=== PATIENT | female | born 1970 | race Caucasian/White ===

== ENCOUNTER 2017-04-21 06:36 | Day surgery (SDC) | payer BC ==
[2017-04-20 13:19] LABS: CHLORIDE,CL 102 mmol/L (98-107); SODIUM,NA 139 mmol/L (136-145)
[~2017-04-21 06:36] MED LIST: Sodium Chloride 0.9% 10 ML Syringe FLUSH PRN; Sodium Chloride 0.9% 2.5 ML Syringe FLUSH PRN; ceFAZolin 1 GM in Premix Bag 1 BAG IV ONE
[2017-04-21] MEDS ORDERED: Fluorescein 5 ML Vial ONE (07:16)
[2017-04-21] MEDS ORDERED: Methylene Blue 50 MG/10 ML Ampule ONE (07:17)
[2017-04-21] MEDS ORDERED: Bupivacaine 0.25% 10 ML SDV ONE ×2 (07:17→08:27)
[2017-04-21] MEDS: Lactated Ringers 1,000 ML IV SCH ×2 (07:19→13:36)
--- NOTE | 2017-04-21 07:19 | PCM.PREANE ---
Preanesthetic Assessment - Anesthesia/Transfusion/Family Hx Anesthesia History: Prior Anesthesia Without Reaction Family History of Anesthesia Reaction: No Transfusion History: No Prior Transfusion(s) - Review of Systems General: No Symptoms Pulmonary: No Symptoms Cardiovascular: No Symptoms Gastrointestinal: No Symptoms Neurological: No Symptoms Other: Reports: Anxiety - Physical Assessment NPO Status Date: 04/20/17 Height: 1.56 m Weight: 68.039 kg ASA Class: 2 Mental Status: Alert & Oriented x3 Airway Class: Mallampati = 1 Dentition: Reports: Normal Dentition ROM/Head Extension: Full Lungs: Clear to Auscultation, Normal Respiratory Effort Cardiovascular: Regular Rate, Regular Rhythm - Lab Values: Laboratory Last Values WBC 5.43 K/uL (4.0-11.0) 04/20/17 11:34 RBC 4.48 M/uL (4.30-5.90) 04/20/17 11:34 Hgb 12.9 g/dL (12.0-16.0) 04/20/17 11:34 Hct 38.0 % (36.0-46.0) 04/20/17 11:34 MCV 84.8 fL (80.0-98.0) 04/20/17 11:34 MCH 28.8 pg (27.0-32.0) 04/20/17 11:34 MCHC 33.9 g/dL (31.0-37.0) 04/20/17 11:34 RDW Std Deviation 41.6 fl (28.0-62.0) 04/20/17 11:34 RDW Coeff of Pablo 14 % (11.0-15.0) 04/20/17 11:34 Plt Count 211 K/uL (150-400) 04/20/17 11:34 MPV 8.90 fL (7.40-12.00) 04/20/17 11:34 Nucleated RBC % 0.0 /100WBC 04/20/17 11:34 Nucleated RBCs # 0 K/uL 04/20/17 11:34 Sodium 139 mmol/L (136-145) 04/20/17 11:34 Potassium 4.2 mmol/L (3.5-5.1) 04/20/17 11:34 Chloride 102 mmol/L (98-107) 04/20/17 11:34 Carbon Dioxide 27.0 mmol/L (21.0-32.0) 04/20/17 11:34 BUN 11 mg/dL (7.0-18.0) 04/20/17 11:34 Creatinine 0.8 mg/dL (0.6-1.0) 04/20/17 11:34 Est Cr Clr Drug Dosing 69.35 mL/min 04/20/17 11:34 Estimated GFR (MDRD) > 60.0 ml/min 04/20/17 11:34 Glucose 92 mg/dL (74-106) 04/20/17 11:34 Calcium 8.6 mg/dL (8.5-10.1) 04/20/17 11:34 HCG, Quant < 1.0 mIU/mL 04/20/17 11:34 Blood Type O NEGATIVE 04/20/17 11:34 Antibody Screen NEGATIVE 04/20/17 11:34 - Allergies Allergies/Adverse Reactions: Allergies Allergy/AdvReac Type Severity Reaction Status Date / Time No Known Allergies Allergy Verified 04/16/17 09:44 - Anesthesia Plan Pre-Op Medication Ordered: None - Acknowledgements Anesthesia Type Planned: General Anesthesia Pt an Appropriate Candidate for the Planned Anesthesia: Yes Alternatives and Risks of Anesthesia Discussed w Pt/Guardian: Yes Pt/Guardian Understands and Agrees with Anesthesia Plan: Yes PreAnesthesia Questionnaire HEENT History: Reports: Other (See Below) Other HEENT History: wears contacts Cardiovascular History: Reports: None Respiratory History: Reports: None Gastrointestinal History: Reports: None Genitourinary History: Reports: Renal [address] RO[address] CONTRACTOR History: Reports: , Spontaneous Musculoskeletal History: Reports: None Neurological History: Reports: None Psychiatric History: Reports: Anxiety, Depression Endocrine/Metabolic History: Reports: None Hematologic History: Reports: None Immunologic History: Reports: None Oncologic (Cancer) History: Reports: None Dermatologic History: Reports: Other (See Below) Other Dermatologic History: rash to face - Infectious Disease History Infectious Disease History: Reports: Chicken Pox - Past Surgical History Head Surgeries/Procedures: Reports: None HEENT Surgical History: Reports: None Cardiovascular Surgical History: Reports: None Respiratory Surgical History: Reports: None GI Surgical History: Reports: None Female Surgical History: Reports: Section, Cervical Cryotherapy Endocrine Surgical History: Reports: None Neurological Surgical History: Reports: None Musculoskeletal Surgical History: Reports: None Oncologic Surgical History: Reports: None Dermatological Surgical History: Reports: None - SUBSTANCE USE Smoking Status *Q: Never Smoker Recreational Drug Use History: No - HOME MEDS Home Medications: Home Meds ALPRAZolam [Alprazolam] 1 tab PO DAILY PRN 01/20/16 [History] buPROPion [Wellbutrin XL] 150 mg PO DAILY 01/20/16 [History] Desvenlafaxine [Desvenlafaxine ER] 100 mg PO DAILY 04/16/17 [History] Ibuprofen 2 tab PO ASDIRECTED PRN 04/16/17 [History] Zolpidem [Ambien] 5 mg PO BEDTIME PRN 04/16/17 [History] metroNIDAZOLE [Metrogel 1%] 1 applic TOP ASDIRECTED 04/16/17 [History] - CURRENT (IN HOUSE) MEDS Current Meds: Current Medications Lactated Ringer's (Ringers, Lactated) 1,000 mls @ 125 mls/hr IV ASDIRECTED DANILO Sodium Chloride (Saline Flush) 10 ml FLUSH ASDIRECTED PRN PRN Reason: Keep Vein Open Sodium Chloride (Saline Flush) 2.5 ml FLUSH ASDIRECTED PRN PRN Reason: Keep Vein Open Discontinued Medications Cefazolin Sodium/Dextrose 1 gm (/ Premix) 50 mls @ 100 mls/hr IV ONETIME ONE Stop: 04/21/17 05:29
[2017-04-21] MEDS ORDERED: Midazolam 1 MG/ML 2 ML SDV ONE (07:20)
[2017-04-21] MEDS ORDERED: Propofol 200 MG/20 ML SDV ONE (07:20)
[2017-04-21] MEDS ORDERED: Ondansetron 4 MG/2 ML SDV ONE (07:20)
[2017-04-21] MEDS ORDERED: fentaNYL 100 MCG/2 ML SDV ONE (07:20)
[2017-04-21] MEDS ORDERED: Ketorolac 30 MG/ML SDV ONE (07:28)
[2017-04-21] MEDS ORDERED: Glycopyrrolate 0.2 MG/ML SDV ONE (07:28)
[2017-04-21] MEDS ORDERED: Rocuronium 10 MG/ML 10 ML Syringe ONE (07:28)
[2017-04-21] MEDS ORDERED: Dexamethasone 4 MG/ML 5 ML MDV ONE (07:28)
[2017-04-21] MEDS ORDERED: Sugammadex Sodium 200 MG/2 ML VIAL ONE (07:32)
[2017-04-21] MEDS ORDERED: ceFAZolin 1 GM Vial ONE (08:00)
[2017-04-21] MEDS ORDERED: Morphine 10 MG/ML Syringe ONE (08:12)
[2017-04-21] MEDS ORDERED: Desflurane 240 ML Bottle ONE (09:24)
[2017-04-21] MEDS ORDERED: Furosemide 40 MG/4 ML VIAL ONE ×2 (10:00→10:08)
[2017-04-21] MEDS ORDERED: Arista AH Absorbable Hemostat ONE (10:20)
[2017-04-21] MEDS ORDERED: Promethazine 25 MG/ML SDV IM PRN (10:42)
[2017-04-21] MEDS ORDERED: Simethicone 80 MG Tab.Chew PO PRN (10:42)
[2017-04-21] MEDS ORDERED: Morphine 4 MG/ML Syringe IVPUSH PRN (10:42)
[2017-04-21] MEDS ORDERED: Ondansetron 4 MG/2 ML SDV IVPUSH PRN (10:42)
[2017-04-21] MEDS ORDERED: Ketorolac 30 MG/ML SDV IVPUSH PRN (10:42)
[2017-04-21] MEDS ORDERED: Ketorolac 30 MG/ML SDV IVPUSH ONE (10:42)
[2017-04-21] MEDS ORDERED: Belladonna Alkaloids/Opium 16.2-30 MG Supp RECTAL PRN (10:42)
[2017-04-21] MEDS ORDERED: Aluminum Hydroxide/Magnesium Hydroxide/Simethicone Susp 30 ML Cup PO PRN (10:42)
[2017-04-21] MEDS ORDERED: Morphine 2 MG/ML Syringe IVPUSH PRN (10:42)
--- NOTE | 2017-04-21 10:59 | PCM.OPNOTE ---
- General Post-Op/Procedure Note Date of Surgery/Procedure: 04/21/17 Operative Procedure(s): LAVH/Bilateral salpingectomy/cystoscopy/adhesiolysis Findings: Dense omental/anterior abdominal wall adhesions Dense utero vesical adhesions Pre Op Diagnosis: Menometrorrhagia Post-Op Diagnosis: Same Anesthesia Technique: General ET Tube Primary Surgeon: Mayda Davies Push Button Switch Assembler: AdumDarcy Fluid Replacement, Intraop: 1,750 EBL in mLs: 150 Complications: none known Condition: Good Free Text/Narrative:: Dictation [id number]
--- NOTE | 2017-04-21 11:30 | PCM.POSTAN ---
POST ANESTHESIA ASSESSMENT - RESPIRATORY Respiratory Status: Respiratory Rate WNL, Airway Patent - CARDIOVASCULAR CV Status: Pulse Rate WNL, Blood Pressure Stable - GASTROINTESTINAL GI Status: No Symptoms - POST OP HYDRATION Hydration Status: Adequate & Stable
--- NOTE | 2017-04-21 12:33 | PCM.POSTAN ---
POST ANESTHESIA ASSESSMENT - MENTAL STATUS Mental Status: Alert - VITAL SIGNS Pulse Rate: 92 SaO2: 96 Resp Rate: 15 Blood Pressure: 104/61 Temperature: 37.6 C - RESPIRATORY Respiratory Status: Respiratory Rate WNL, Airway Patent, O2 Saturation Stable - CARDIOVASCULAR CV Status: Pulse Rate WNL, Blood Pressure Stable - GASTROINTESTINAL GI Status: No Symptoms - PAIN Pain Score: 1 - POST OP HYDRATION Hydration Status: Adequate & Stable (No problems noted post.)
[2017-04-21] MEDS: Acetaminophen/oxyCODONE 325-5 MG Tab PO PRN ×3 (15:24→21:28)
--- NOTE | 2017-04-21 16:16 | OR ---
SURGEON: Mayda Davies M.D. DATE OF PROCEDURE: 04/21/2017 PREOPERATIVE DIAGNOSIS: Menometrorrhagia. POSTOPERATIVE DIAGNOSIS: Menometrorrhagia. PROCEDURES: Laparoscopic-assisted vaginal hysterectomy, bilateral salpingectomy, cystoscopy, adhesiolysis of dense anterior abdominal wall adhesions and uterovesical adhesions. METAPHYSICIAN: Darcy Wilkerson MD. ANESTHESIA: General endotracheal anesthesia. FLUIDS: 1750 mL crystalloid. ESTIMATED BLOOD LOSS: 150 mL. COMPLICATIONS: None known. FINDINGS: Approximately 8-week size uterus. Normal-appearing ovaries. Dense anterior abdominal wall omental adhesions along the midline. Very dense uterovesical adhesions from previous sections. Bilateral patent ureters with cystoscopy. DISPOSITION: The patient to PACU in stable condition. PROCEDURE DETAILS: Coty is a 46-year-old female who has ongoing difficulties with menometrorrhagia. She would like to proceed with definitive intervention in the form of hysterectomy. The risks of procedure have been discussed. Her proper consent is obtained. The patient was taken to operating room where she underwent general endotracheal anesthesia and while undergoing intubation, and then was placed in modified dorsal lithotomy position. Once anesthetized, she was prepped and draped in the usual sterile fashion. SCDs to the lower extremities. Boyd to gravity. She received Ancef prophylactically. A time- out was performed. Once fully prepped and draped in the usual sterile fashion, a speculum was introduced into the vagina. The anterior lip was grasped with an Allis clamp, and uterine HUMI manipulator was gently introduced at 8 cm. The balloon was insufflated. Instruments were removed from vagina. The gloves were changed. Attention was turned abdominally. The infraumbilical region was prepped with 0.25% Marcaine. Please see the nursing notes for total amount of local dispensed during the procedure. A 5 mm infraumbilical sagittal midline skin incision was created, and the anterior abdominal wall was tented upward. A Veress needle was introduced. Saline hanging drop test was performed. Pneumoperitoneum was achieved. Followed by removal of the Veress needle and introduction of a 5-mm trocar, laparoscope was introduced, and peritoneal contents are identified. Dense omental adhesions were noted to be present. The right and left lower quadrant 5-mm trocars were placed on either side. After prepping these regions with 0.25% Marcaine, creating 5 mm skin incisions imaged is in the trocars under direct visualization. LigaSure was utilized to cauterize and lyse the adhesions of the omentum to the anterior abdominal wall. No more able to be easily visualize the pelvis. The uterus itself was fairly mobile other than the anterior lower uterine segment due to the dense uterovesical adhesions. Attention was turned to performing the left salpingectomy. Using LigaSure, the fallopian tube was identified, grasped with a grasper, and salpingectomy was performed at the level of the cornua. At this juncture, the pedicles involving the utero tubo-ovarian pedicle, the upper portion of the broad ligament, mid portion including the round ligament, lower portion of the broad ligament to the level of the cardinal ligament and in the upper level of the cardinal ligament were able to be secured with LigaSure, cauterized and transected. The uterovesical adhesions are fairly high on the lower uterine segment. Therefore, in gently dissecting these dense adhesions using the LigaSure, they are mobilizing. Hydrodissection was also performed to help mobilize the adhesions. Further pedicle was able to be secured at the level of the uterosacral ligament on the patient's left side. Attention was now turned to performing the similar procedure on the patient's right side. The right fimbria was actually quite adhesed to the right ovary. Therefore, this was gently dissected and then secured with LigaSure, cauterized, and transected. Salpingectomy was performed to the level of the cornua. The similar pedicles including the utero tubo- ovarian broad ligament in three sections, upper edge of the cardinal ligament, and then the lower portion of the cardinal ligament were able to be secured, transected, and suture ligated. Again, time was taken to perform adhesiolysis along the uterovesical adhesions along this side gently teasing the bladder away from the lower uterine segment and the cervical region. The region was also hydrodissected. At this point, Dr. Wilkerson continued visualization with laparoscope abdominally and I transitioned vaginally. The hips and knees were slightly flexed. A weighted speculum and anterior Alma were placed in the vagina as well as sidewall retractors. The cervix was grasped with Dana clamps and circumscribed with Bovie cautery. Anteriorly and posteriorly, the overlying mucosa was dissected away from underlying perineum. The sidewall from the cervix was also gently dissected bluntly. The anterior peritoneum was tented upward and entered sharply. With careful dissection, I was able to enter the left lateral aspect of the cul-de-sac under direct visualization. The remainder of the adhesions were now bluntly dissected, and the bladder's integrity was maintained. The anterior Alma was now placed to mobilize the bladder away from the lower uterine segment. The laparoscopic instruments have been removed, and the pneumoperitoneum had been released. Posteriorly, the posterior peritoneum was tented downward and entered sharply. A longer weighted speculum was replaced with the shorter. A Wendy clamp was utilized to secure the uterosacral ligaments on either side, transected and suture ligated with 2-0 Vicryl. A further pedicle on the patient's left side was secured, transected, and suture ligated. Two further pedicles were needed to be secured, transected, and suture ligated to allow the uterus and the left fallopian tube to be removed. The right fallopian tube was not present with the specimen and was unable to be easily visualized within the pelvis. Therefore, proceeded with inspected remainder of the pedicles. They were found to be hemostatic. The uterosacral ligament on either side was plicated to the vaginal apex. Once again inspected the pedicles. The area of oozing along the left uterosacral ligament was cauterized. Hemostasis was now evident. Sponge stick was removed, and the cuff was closed with 0 Vicryl in a continuous running locked fashion. The Boyd catheter balloon was deflated, and the bladder was drained, fluorescein and Lasix delivered IV via the arc welder apprentice. The cuff has been satisfactorily reapproximated, the cuff was once again inspected and found to be hemostatic. The Boyd catheter was now removed. Using the cystoscope and a normal saline, this was introduced in the uterine cavity into the bladder. The dome of the bladder was able to be visualized with the bubble present. The trigone was now inspected. The right ureteral orifice was able to be visualized. The left ureteral orifice has fluorescein-dyed urine, seen streaming from it. Followed by visualization of the right ureteral orifice with fluorescein-dyed urine seen streaming from it helping to ensure ureteral patency. The bladder was now drained. A Boyd catheter was placed. The cuff was once again inspected. There was an area oozing right in the midline of the cuff. This was reapproximated with [id number] suture. Hemostasis was thereafter evident. Instruments were removed from the vagina. Gloves were changed. Attention was turned abdominally. Pneumoperitoneum was once again achieved. A laparoscope was then introduced. The right fallopian tube actually has a small segment that is still adherent to the right IFP. Therefore, this remaining pedicle is secured and transected. The tube was now removed through the left lower quadrant port and handed off to sleep technician to be sent to Pathology. The pelvis was now copiously irrigated and suction dried. There is an area of bleeding noted along the right utero tubo-ovarian pedicle. This was cauterized with LigaSure. Hemostasis was thereafter evident. As long as the pelvis itself though is raw from the dissection of the adhesions along the uterovesical adhesions, but overall, there was no acute area of bleeding. The region was once again very well irrigated, suction dried, and introduced orquidea along the raw surface of the anterior peritoneum. Pneumoperitoneum had been released down to 5 mmHg. No active bleeding was noted. Pneumoperitoneum was now released. The laparoscopic instruments were removed under direct visualization followed by the trocars. The skin edges were reapproximated using 3-0 Monocryl with inverted mattress sutures in subcuticular fashion. The sponge, instrument, and needle counts were correct x2. The patient tolerated the procedure well overall. She will go to the PACU in stable condition. Specimens to pathology. HAWK / ADITI /[id number] SHAHLA
--- NOTE | 2017-04-21 17:55 | PCM.SN ---
- Free Text/Narrative Note: Patient is doing well overall-denies nausea. Pain is controlled. She feels hungry. We reviewed findings at the time of the procedure and the procedure itself. Questions answered. She is to continue postoperative cares. VS are stable. Urine output is adequate. Dressings are dry and intact.
[2017-04-21] MEDS: Docusate Sodium 100 MG Cap PO SCH (20:35)
[2017-04-22] MEDS: Acetaminophen/oxyCODONE 325-5 MG Tab PO PRN ×2 (05:27→09:08)
[2017-04-22 06:02] LABS: CHLORIDE,CL 103 mmol/L (98-107); SODIUM,NA 138 mmol/L (136-145)
[2017-04-22 08:39] VITALS: BP 99/61
[2017-04-22] MEDS: Docusate Sodium 100 MG Cap PO SCH (09:08)
--- NOTE | 2017-04-22 09:11 | PCM.SURGPN ---
- General Info Date of Service: 04/22/17 POD#: 1 Functional Status: Reports: Pain Controlled, Tolerating Diet, Ambulating, Urinating - Review of Systems General: Denies: Fever Pulmonary: Denies: Shortness of Breath Cardiovascular: Denies: Chest Pain, Palpitations, Lightheadedness Gastrointestinal: Reports: Abdominal Pain (has some gas pain from laparoscopy, walking and pain meds help alleviate), Flatus. Denies: Nausea, Vomiting Neurological: Reports: No Symptoms Psychiatric: Reports: No Symptoms - Patient Data Vitals - Most Recent: Last Vital Signs Temp 36.3 C 04/22/17 08:38 Pulse 85 04/22/17 08:38 Resp 16 04/22/17 08:38 BP 99/61 04/22/17 08:38 Pulse Ox 96 04/22/17 08:38 Weight - Most Recent: 68.039 kg I&O - Last 24 Hours: Intake & Output 04/21/17 04/22/17 04/22/17 22:59 06:59 14:59 Intake Total 979 960 Output Total 550 1400 Balance 429 -440 Lab Results Last 24 Hrs: Laboratory Results - last 24 hr 04/22/17 04/22/17 Range/Units 05:20 05:20 WBC 8.28 (4.0-11.0) K/uL RBC 3.71 L (4.30-5.90) M/uL Hgb 10.4 L (12.0-16.0) g/dL Hct 31.9 L (36.0-46.0) % MCV 86.0 (80.0-98.0) fL MCH 28.0 (27.0-32.0) pg MCHC 32.6 (31.0-37.0) g/dL RDW Std Deviation 42.4 (28.0-62.0) fl RDW Coeff of Pablo 14 (11.0-15.0) % Plt Count 177 (150-400) K/uL MPV 8.80 (7.40-12.00) fL Neut % (Auto) 73.4 (48.0-80.0) % Lymph % (Auto) 19.1 (16.0-40.0) % Morton % (Auto) 7.4 (0.0-15.0) % Eos % (Auto) 0.1 (0.0-7.0) % Baso % (Auto) 0.0 (0.0-1.5) % Neut # (Auto) 6.1 H (1.4-5.7) K/uL Lymph # (Auto) 1.6 (0.6-2.4) K/uL Morton # (Auto) 0.6 (0.0-0.8) K/uL Eos # (Auto) 0.0 (0.0-0.7) K/uL Baso # (Auto) 0.0 (0.0-0.1) K/uL Nucleated RBC % 0.0 /100WBC Nucleated RBCs # 0 K/uL Sodium 138 (136-145) mmol/L Potassium 4.2 (3.5-5.1) mmol/L Chloride 103 (98-107) mmol/L Carbon Dioxide 28.9 (21.0-32.0) mmol/L BUN 9 (7.0-18.0) mg/dL Creatinine 0.8 (0.6-1.0) mg/dL Est Cr Clr Drug Dosing 69.35 mL/min Estimated GFR (MDRD) > 60.0 ml/min Glucose 90 (74-106) mg/dL Calcium 8.5 (8.5-10.1) mg/dL Med Orders - Current: Current Medications Al Hydroxide/Mg Hydroxide (Mag-Al Plus) 30 ml PO Q4H PRN PRN Reason: Indigestion Belladonna Alkaloids/Opium (B & O Supprettes No. 15a) 1 supp RECTAL Q4H PRN PRN Reason: Pain Docusate Sodium (Colace) 100 mg PO BID [facility] Last Admin: 04/21/17 20:35 Dose: 100 mg Lactated Ringer's (Ringers, Lactated) 1,000 mls @ 125 mls/hr IV ASDIRECTED [facility] Last Admin: 04/21/17 13:36 Dose: 125 mls/hr Ketorolac Tromethamine (Toradol) 30 mg IVPUSH Q6H PRN PRN Reason: Pain (severe 7-10) Stop: 04/26/17 10:42 Morphine Sulfate (Morphine) 2 mg IVPUSH Q2H PRN PRN Reason: Pain (severe 7-10) Last Admin: 04/21/17 13:43 Dose: 2 mg Morphine Sulfate (Morphine) 4 mg IVPUSH Q2H PRN PRN Reason: Pain (severe 7-10) Ondansetron HCl (Zofran) 4 mg IVPUSH Q6H PRN PRN Reason: Nausea/Vomiting Last Admin: 04/21/17 13:34 Dose: 4 mg Oxycodone/Acetaminophen (Percocet 325-5 Mg) 1 tab PO Q4H PRN PRN Reason: Pain (moderate 4-6) Last Admin: 04/21/17 19:25 Dose: 1 tab Oxycodone/Acetaminophen (Percocet 325-5 Mg) 2 tab PO Q4H PRN PRN Reason: Pain (moderate 4-6) Last Admin: 04/22/17 05:27 Dose: 2 tab Promethazine HCl (Phenergan) 25 mg IM Q6H PRN PRN Reason: Nausea/Vomiting Simethicone (Simethicone) 80 mg PO Q4H PRN PRN Reason: Abdominal Pain Sodium Chloride (Saline Flush) 10 ml FLUSH ASDIRECTED PRN PRN Reason: Keep Vein Open Sodium Chloride (Saline Flush) 2.5 ml FLUSH ASDIRECTED PRN PRN Reason: Keep Vein Open Last Admin: 04/21/17 13:35 Dose: 2.5 ml Discontinued Medications Bupivacaine HCl (Sensorcaine-Mpf 0.25%) Confirm Administered Dose 20 ml .ROUTE .STK-MED ONE Stop: 04/21/17 07:18 Bupivacaine HCl (Sensorcaine-Mpf 0.25%) Confirm Administered Dose 10 ml .ROUTE .STK-MED ONE Stop: 04/21/17 08:28 Cefazolin Sodium (Ancef) Confirm Administered Dose 1 gm .ROUTE .STK-MED ONE Stop: 04/21/17 08:01 Desflurane (Suprane) Confirm Administered Dose 240 ml .ROUTE .STK-MED ONE Stop: 04/21/17 09:25 Dexamethasone (Dexamethasone) Confirm Administered Dose 20 mg .ROUTE .STK-MED ONE Stop: 04/21/17 07:29 Fentanyl (Sublimaze) Confirm Administered Dose 100 mcg .ROUTE .STK-MED ONE Stop: 04/21/17 07:21 Fluorescein Sodium (Ak-Fluor) Confirm Administered Dose 5 ml .ROUTE .STK-MED ONE Stop: 04/21/17 07:17 Furosemide (Lasix) Confirm Administered Dose 40 mg .ROUTE .STK-MED ONE Stop: 04/21/17 10:01 Furosemide (Lasix) Confirm Administered Dose 40 mg .ROUTE .STK-MED ONE Stop: 04/21/17 10:09 Glycopyrrolate (Robinul) Confirm Administered Dose 0.2 mg .ROUTE .STK-MED ONE Stop: 04/21/17 07:29 Cefazolin Sodium/Dextrose 1 gm (/ Premix) 50 mls @ 100 mls/hr IV ONETIME ONE Stop: 04/21/17 05:29 Last Admin: 04/21/17 13:53 Dose: Not Given Acetaminophen (Ofirmev) Confirm Administered Dose 100 mls @ as directed IV .STK- MED ONE Stop: 04/21/17 07:32 Ketorolac Tromethamine (Toradol) Confirm Administered Dose 30 mg .ROUTE .STK- MED ONE Stop: 04/21/17 07:29 Ketorolac Tromethamine (Toradol) 30 mg IVPUSH ONETIME ONE Stop: 04/21/17 10:43 Last Admin: 04/21/17 14:00 Dose: Not Given Lidocaine HCl (Xylocaine-Mpf 1%) Confirm Administered Dose 5 ml .ROUTE .STK-MED ONE Stop: 04/21/17 07:21 Methylene Blue (Provayblue) Confirm Administered Dose 50 mg .ROUTE .STK-MED ONE Stop: 04/21/17 07:18 Midazolam HCl (Versed 1 Mg/Ml) Confirm Administered Dose 2 mg .ROUTE .STK-MED ONE Stop: 04/21/17 07:21 Morphine Sulfate (Morphine) Confirm Administered Dose 10 mg .ROUTE .STK-MED ONE Stop: 04/21/17 08:13 Non-Formulary Medication (Jeannette Ah Absorbable Hemostat) Confirm Administered Dose 1 each .ROUTE .STK-MED ONE Stop: 04/21/17 10:21 Ondansetron HCl (Zofran) Confirm Administered Dose 4 mg .ROUTE .STK-MED ONE Stop: 04/21/17 07:21 Propofol (Diprivan 20 Ml) Confirm Administered Dose 200 mg .ROUTE .STK-MED ONE Stop: 04/21/17 07:21 Rocuronium [place] (Zemuron) Confirm Administered Dose 100 mg .ROUTE .STK-MED ONE Stop: 04/21/17 07:29 - Exam Wound/Incisions: Healing Well, Dressing Dry and Intact General: Alert, Oriented Lungs: Normal Respiratory Effort Cardiovascular: Regular Rate, Regular Rhythm GI/Abdominal Exam: Normal Bowel Sounds, Soft Extremities: No: Angelica's Sign Skin: Warm, Dry, Intact Psy/Mental Status: Alert, Normal Affect Physical Findings Comment:: No flank tenderness - Problem List & Annotations (1) Menometrorrhagia SNOMED Code(s): 493792777 Code(s): N92.1 - EXCESSIVE AND FREQUENT MENSTRUATION WITH IRREGULAR CYCLE Status: Acute Current Visit: Yes - Problem List Review Problem List Initiated/Reviewed/Updated: Yes - My Orders Last 24 Hours: Active Orders 24 hr Category Date Time Status Patient Status [ADT] Routine ADT 04/21/17 10:42 Active Antiembolic Devices [RC] PER UNIT ROUTINE Care 04/21/17 10:43 Active May Shower [RC] ASDIRECTED Care 04/21/17 10:42 Active Notify Provider Intake and Out [RC] ASDIRECTED Care 04/21/17 10:42 Active Notify Provider Vital Signs [RC] ASDIRECTED Care 04/21/17 10:42 Active Oxygen Therapy [RC] ASDIRECTED Care 04/21/17 10:42 Active RT Incentive Spirometry [RC] Q2HWA Care 04/21/17 10:42 Active Ready for Discharge [RC] PER UNIT ROUTINE Care 04/22/17 09:07 Ordered Up ad Yelena [RC] PER UNIT ROUTINE Care 04/21/17 10:42 Active Vital Signs [RC] PER UNIT ROUTINE Care 04/21/17 10:42 Active Regular Diet [DIET] Diet 04/21/17 Lunch Active Acetaminophen/oxyCODONE [Percocet 325-5 MG] Med 04/21/17 10:42 Active 1 tab PO Q4H PRN Acetaminophen/oxyCODONE [Percocet 325-5 MG] Med 04/21/17 10:42 Active 2 tab PO Q4H PRN Alum Hydrox/Mag Hydrox/Simeth [Mag-Al Plus] Med 04/21/17 10:42 Active 30 ml PO Q4H PRN Belladonna/Opium [B & O Supprettes No. 15A] Med 04/21/17 10:42 Active 1 supp RECTAL Q4H PRN Docusate Sodium [Colace] Med 04/21/17 21:00 Active 100 mg PO BID Ketorolac [Toradol] Med 04/21/17 10:42 Active 30 mg IVPUSH Q6H PRN Morphine Med 04/21/17 10:42 Active 2 mg IVPUSH Q2H PRN Morphine Med 04/21/17 10:42 Active 4 mg IVPUSH Q2H PRN Ondansetron [Zofran] Med 04/21/17 10:42 Active 4 mg IVPUSH Q6H PRN Promethazine [Phenergan] Med 04/21/17 10:42 Active 25 mg IM Q6H PRN Simethicone Med 04/21/17 10:42 Active 80 mg PO Q4H PRN Heat Therapy [OM.PC] Routine Oth 04/21/17 17:55 Ordered Peripheral IV Discontinue [OM.PC] Routine Oth 04/21/17 10:42 Ordered Sequential Compression Device [OM.PC] Per Unit Routine Oth 04/21/17 10:42 Ordered Resuscitation Status Routine Resus Stat 04/21/17 10:42 Ordered Medication Orders Al Hydroxide/Mg Hydroxide (Mag-Al Plus) 30 ml PO Q4H PRN PRN Reason: Indigestion Belladonna Alkaloids/Opium (B & O Supprettes No. 15a) 1 supp RECTAL Q4H PRN PRN Reason: Pain Docusate Sodium (Colace) 100 mg PO BID [facility] Last Admin: 04/21/17 20:35 Dose: 100 mg Lactated Ringer's (Ringers, Lactated) 1,000 mls @ 125 mls/hr IV ASDIRECTED [facility] Last Admin: 04/21/17 13:36 Dose: 125 mls/hr Infusion: 04/21/17 13:36 Dose: 125 mls/hr Admin: 04/21/17 07:19 Dose: 125 mls/hr Ketorolac Tromethamine (Toradol) 30 mg IVPUSH Q6H PRN PRN Reason: Pain (severe 7-10) Stop: 04/26/17 10:42 Morphine Sulfate (Morphine) 2 mg IVPUSH Q2H PRN PRN Reason: Pain (severe 7-10) Last Admin: 04/21/17 13:43 Dose: 2 mg Morphine Sulfate (Morphine) 4 mg IVPUSH Q2H PRN PRN Reason: Pain (severe 7-10) Ondansetron HCl (Zofran) 4 mg IVPUSH Q6H PRN PRN Reason: Nausea/Vomiting Last Admin: 04/21/17 13:34 Dose: 4 mg Oxycodone/Acetaminophen (Percocet 325-5 Mg) 1 tab PO Q4H PRN PRN Reason: Pain (moderate 4-6) Last Admin: 04/21/17 19:25 Dose: 1 tab Admin: 04/21/17 15:24 Dose: 1 tab Oxycodone/Acetaminophen (Percocet 325-5 Mg) 2 tab PO Q4H PRN PRN Reason: Pain (moderate 4-6) Last Admin: 04/22/17 05:27 Dose: 2 tab Admin: 04/21/17 21:28 Dose: 1 tab Promethazine HCl (Phenergan) 25 mg IM Q6H PRN PRN Reason: Nausea/Vomiting Simethicone (Simethicone) 80 mg PO Q4H PRN PRN Reason: Abdominal Pain Sodium Chloride (Saline Flush) 10 ml FLUSH ASDIRECTED PRN PRN Reason: Keep Vein Open Sodium Chloride (Saline Flush) 2.5 ml FLUSH ASDIRECTED PRN PRN Reason: Keep Vein Open Last Admin: 04/21/17 13:35 Dose: 2.5 ml - Assessment Assessment (Free Text/Narrative):: POD 1 status post LAVH/bilateral salpingectomy/cystoscopy/adhesiolysis - Plan Plan (Free Text/Narrative):: Patient is doing well overall. VS and labs are reassuring. She would like to go home later this morning. Discharge instructions reviewed. Follow up at [facility] 2 and 6 weeks. Infection and bleeding warnings reviewed. Discharge to home today. Rx for percocet sent into [facility].
== END 2017-04-22 10:15 | disposition home or self-care (01) ==
LOC: MW.SDS 06:36 → MW.OB 10:42 → MW.SDS 04-22 10:15
PROVIDERS: ATTEND Obstetrics & Gynecology
DX: N80.0 Endometriosis of uterus (principal); R21 Rash and other nonspecific skin eruption; F41.8 Other specified anxiety disorders; Z79.899 Other long term (current) drug therapy
CPT/HCPCS: 36415; 58552; 80048; 84702; 85025; 85027; 86850; 86900; 86901; 88307; A9270; C9399; J0690; J1100; J1885; J1940; J2250; J2270; J2405; J3010; J7120; 00840; J2704

== ENCOUNTER 2019-02-09 14:10 | Emergency (ER) | payer BC ==
[2019-02-09 14:27] VITALS: BP 146/93; PULSE 97
--- NOTE | 2019-02-09 14:51 | EDM.PDOC ---
ED HPI GENERAL MEDICAL PROBLEM - General Chief Complaint: Lower Extremity Injury/Pain Stated Complaint: INJURY TO RIGHT ANKLE Time Seen by Provider: 02/09/19 14:51 Source of Information: Reports: Patient History Limitations: Reports: No Limitations - History of Present Illness INITIAL COMMENTS - FREE TEXT/NARRATIVE: HISTORY AND PHYSICAL: History of present illness: Patient is a 48-year-old female presents to the ED with complaint of right ankle injury. She states she hurt her ankle when she tripped going down some stairs yesterday. She states she has not been able to bear weight on it. She denies proximal hip or knee pain and has no other complaints at this time. Review of systems: As per history of present illness and below otherwise all systems reviewed and negative. Past medical history: As per history of present illness and as reviewed below otherwise noncontributory. Surgical history: As per history of present illness and as reviewed below otherwise noncontributory. Social history: No reported history of drug or alcohol abuse. Family history: As per history of present illness and as reviewed below otherwise noncontributory. Physical exam: General: Patient sitting comfortably in no acute distress and nontoxic appearing HEENT: Atraumatic, normocephalic, pupils reactive, negative for conjunctival pallor or scleral icterus, mucous membranes moist, throat clear, neck supple, nontender, trachea midline. No meningeal signs. Lungs: Clear to auscultation, breath sounds equal bilaterally, chest nontender. Heart: S1S2, regular, negative for clicks, rubs, or overt murmur. Abdomen: Soft, nondistended, nontender. Negative for masses or hepatosplenomegaly. Negative for costovertebral tenderness. No rigidity, rebound , guarding. Pelvis: Stable nontender. Genitourinary: Deferred. Rectal: Deferred. Extremities: Swelling and pain to palpation of the right lateral malleolus. Atraumatic, negative for cords or calf pain. Neurovascular unremarkable. Neuro: Awake, alert, oriented. Cranial nerves II through XII unremarkable. Cerebellum unremarkable. Motor and sensory unremarkable throughout. Exam nonfocal. Notes: Diagnostics: x-ray right ankle Therapeutics: CAM boot declined crutches Prescriptions: Impression: Right ankle injury Definitive disposition and diagnosis as appropriate pending reevaluation and review of above. Right Ankle Pain Score (Numeric/FACES): 7 - Related Data Allergies Allergy/AdvReac Type Severity Reaction Status Date / Time No Known Allergies Allergy Verified 04/16/17 09:44 Home Meds: Home Meds ALPRAZolam [Alprazolam] 1 tab PO DAILY PRN 01/20/16 [History] buPROPion [Wellbutrin XL] 150 mg PO DAILY 01/20/16 [History] Desvenlafaxine [Desvenlafaxine ER] 100 mg PO DAILY 04/16/17 [History] Ibuprofen 2 tab PO ASDIRECTED PRN 04/16/17 [History] Zolpidem [Ambien] 5 mg PO BEDTIME PRN 04/16/17 [History] Past Medical History HEENT History: Reports: Other (See Below) Other HEENT History: wears contacts Cardiovascular History: Reports: None Respiratory History: Reports: None Gastrointestinal History: Reports: None Genitourinary History: Reports: Renal Calculus [employer] History: Reports: , Spontaneous Musculoskeletal History: Reports: None Neurological History: Reports: None Psychiatric History: Reports: Anxiety, Depression Endocrine/Metabolic History: Reports: None Hematologic History: Reports: None Immunologic History: Reports: None Oncologic (Cancer) History: Reports: None Dermatologic History: Reports: Other (See Below) Other Dermatologic History: rash to face - Infectious Disease History Infectious Disease History: Reports: Chicken Pox - Past Surgical History Head Surgeries/Procedures: Reports: None HEENT Surgical History: Reports: None Cardiovascular Surgical History: Reports: None Respiratory Surgical History: Reports: None GI Surgical History: Reports: None Female Surgical History: Reports: Section, Cervical Cryotherapy Endocrine Surgical History: Reports: None Neurological Surgical History: Reports: None Musculoskeletal Surgical History: Reports: None Oncologic Surgical History: Reports: None Dermatological Surgical History: Reports: None Social & Family History - Family History Family Medical History: Noncontributory - Tobacco Use Smoking Status *Q: Never Smoker - Caffeine Use Caffeine Use: Reports: Soda - Recreational Drug Use Recreational Drug Use: No Review of Systems - Review of Systems Review Of Systems: Comprehensive ROS is negative, except as noted in HPI. ED EXAM, GENERAL - Physical Exam Exam: See Below (see dictation) Course - Vital Signs Last Recorded V/S: Last Vital Signs Temp 97.3 F 02/09/19 14:23 Pulse 97 02/09/19 14:23 Resp 17 02/09/19 14:23 BP 146/93 H 02/09/19 14:23 Pulse Ox 98 02/09/19 14:23 Departure - Departure Time of Disposition: 15:05 Disposition: Home, Self-Care 01 Condition: Good Clinical Impression: Injury of right ankle - Discharge Information Referrals: PCP,None [Primary Care Provider] - Forms: ED Department Discharge Additional Instructions: The following information is given to patients seen in the emergency department who are being discharged to home. This information is to outline your options for follow-up care. We provide all patients seen in our emergency department with a follow-up referral. The need for follow-up, as well as the timing and circumstances, are variable depending upon the specifics of your emergency department visit. If you don't have a primary care physician on staff, we will provide you with a referral. We always advise you to contact your personal physician following an emergency department visit to inform them of the circumstance of the visit and for follow-up with them and/or the need for any referrals to a consulting specialist. The emergency department will also refer you to a specialist when appropriate. This referral assures that you have the opportunity for follow-up care with a specialist. All of these measure are taken in an effort to provide you with optimal care, which includes your follow-up. Under all circumstances we always encourage you to contact your private physician who remains a resource for coordinating your care. When calling for follow-up care, please make the office aware that this follow-up is from your recent emergency room visit. If for any reason you are refused follow-up, please contact the [facility] Emergency Department at and asked to speak to the emergency department charge nurse. [facility] Professional Building [address] [place] [address], [address] [place] [address] 1. Ice, elevate, and motrin or tylenol as needed 2. Follow up with orthopedics, please call the number provided to schedule an appointment 3. Return to ED as needed as discussed Sepsis Event Note - Evaluation Sepsis Screening Result: No Definite Risk - Focused Exam Vital Signs: Vital Signs Temp Pulse Resp BP Pulse Ox 02/09/19 14:23 97.3 F 97 17 146/93 H 98 Date Exam was Performed: 02/09/19 Time Exam was Performed: 15:09
--- NOTE | 2019-02-09 14:55 | CR ---
Indication: Injury. Technique: Three views of the right ankle. Comparison: None Findings: Ankle mortise is intact. The talar dome is intact. No acute fracture or subluxation is identified. Impression: No acute fracture Dictated by Isabel Hankins MD @ Feb 09 2019 2:54PM Signed by Dr. Isabel Hankins @ Feb 09 2019 2:54PM
== END 2019-02-09 15:17 | disposition home or self-care (01) ==
LOC: MW.ED 14:10
DX: S99.911A Unspecified injury of right ankle, initial encounter (principal); F41.9 Anxiety disorder, unspecified; F32.9 Major depressive disorder, single episode, unspecified; Z79.899 Other long term (current) drug therapy; W10.9XXA Fall (on) (from) unspecified stairs and steps, initial encounter
CPT/HCPCS: 73610-26-RT; 73610-RT; 99283; 99283-25